=== PATIENT | female | born 1950 | race Caucasian/White ===

== ENCOUNTER 2018-02-06 06:22 | Day surgery (SDC) | payer MEDICARE ==
[~2018-02-06] VITALS: Ht 175.3 cm; Wt 61.6 kg
[~2018-02-06 06:22] MED LIST: ALBU1.252 IH; ALPR0.5T PO; ASCO10007 PO; ATOR10TA69 PO; DENO60DI SQ; DOXY25TA41 PO; ESTRADIOL AD; FLUT16H NASAL; FLUT1AER IH; IBUPROFEN PO; LYRICA PO; MELA10CA2 PO; MULT9LIQ6 PO; OXYC-517 PO; PSEUDOEPHEDRINE PO; TRAZ150T79 PO; ZOLP10TA6 PO
[2018-02-06] MEDS ORDERED: SODIUM CHLORIDE 0.9% 1000ML 1,000 ML IV ONE (07:05)
[2018-02-06 07:13] VITALS: BP 101/58
[2018-02-06 08:37] VITALS: BP 94/52
== END 2018-02-06 09:10 | disposition home or self-care (01) ==
LOC: ENDO 06:22 → DAH 06:22 → ENDO 09:10
PROVIDERS: ATTEND Internal Medicine Gastroenterology
DX: D12.2 Benign neoplasm of ascending colon (principal); D12.0 Benign neoplasm of cecum; D12.3 Benign neoplasm of transverse colon; K63.89 Other specified diseases of intestine; B19.20 Unspecified viral hepatitis C without hepatic coma; E78.5 Hyperlipidemia, unspecified; J44.9 Chronic obstructive pulmonary disease, unspecified; J18.8 Other pneumonia, unspecified organism; G43.909 Migraine, unspecified, not intractable, without status migrainosus; M19.90 Unspecified osteoarthritis, unspecified site; K58.1 Irritable bowel syndrome with constipation; E03.8 Other specified hypothyroidism; Z86.010 Personal history of colon polyps; Z80.0 Family history of malignant neoplasm of digestive organs; Z79.899 Other long term (current) drug therapy; Z90.710 Acquired absence of both cervix and uterus
CPT/HCPCS: 45380; 88305; 93005; A4606; J7030